=== PATIENT | female | born 1970 ===

== ENCOUNTER → 2019-07-03 | Outpatient (CLI) | payer BC ==
[2019-07-04 14:29] LABS: Stool Occult Bld Immuno 1 Negative (NEGATIVE)
== END | disposition home or self-care (01) ==
LOC: OLS 12:46 → LAB SHORT 12:46
PROVIDERS: Naturopath
DX: F41.9 Anxiety disorder, unspecified (principal); G47.00 Insomnia, unspecified; Z79.890 Hormone replacement therapy
CPT/HCPCS: 82274